=== PATIENT | female | born 1995 | race Caucasian/White ===

== ENCOUNTER 2020-09-24 16:31 | Emergency (ER) | payer SELFPAY ==
[~2020-09-24] VITALS: Ht 170.2 cm; Wt 58.0 kg
[2020-09-24 16:36] VITALS: BP 121/86
--- NOTE | 2020-09-24 17:47 | NUR ---
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
[2020-09-24] MEDS ORDERED: L.E.T SOLUTION TP ONE (19:12)
[2020-09-24] MEDS ORDERED: OXYcodone/APAP 5/325MG TABLET ONE (19:12)
[2020-09-24] MEDS ORDERED: LIDOCAINE-MPF 2% ,5ML ONE (19:12)
[2020-09-24] MEDS ORDERED: LIDOCAINE 2%, 20ML SQ ONE (19:30)
[2020-09-24] MEDS ORDERED: OXYcodone/APAP 5/325MG TABLET PO ONE (19:30)
== END 2020-09-24 20:13 | disposition home or self-care (01) ==
LOC: ED 20:00
DX: N75.1 Abscess of Bartholin's gland (principal)
CPT/HCPCS: 56420; 99284